=== PATIENT | male | born 1965 | race Caucasian/White ===

== ENCOUNTER 2017-10-07 16:00 | Emergency (ER) | payer MEDICAID ==
[2017-10-07 17:53] LABS: UA SPECIFIC GRAVITY 1.015 (1.005-1.035); microscopic required? YES; urine erythrocyte TRACE (NEGATIVE)
[2017-10-07 19:29] VITALS: BP 160/84
== END 2017-10-07 19:30 | disposition home or self-care (01) ==
LOC: ED 16:00
PROVIDERS: Emergency Medicine
DX: S22.41XA Multiple fractures of ribs, right side, initial encounter for closed fracture (principal); S60.222A Contusion of left hand, initial encounter; S00.33XA Contusion of nose, initial encounter; V89.2XXA Person injured in unspecified motor-vehicle accident, traffic, initial encounter; Y93.89 Activity, other specified; Y92.89 Other specified places as the place of occurrence of the external cause; Y99.8 Other external cause status
CPT/HCPCS: 90715; 94150